=== PATIENT | male | born 1935 | race Caucasian/White ===

== ENCOUNTER 2020-04-03 14:20 | Emergency (ER) | payer OTHER, MEDICARE ==
[~2020-04-03] VITALS: Ht 167.6 cm; Wt 70.3 kg
[~2020-04-03 14:20] MED LIST: BENA20TA9 PO
[2020-04-03 14:22] VITALS: BP_SYST 156
--- NOTE | 2020-04-03 14:25 | NUR ---
Patient to ER bed 4 to gown for evaluation. Side rails up. Report given to Steve.
--- NOTE | 2020-04-03 15:03 | NUR ---
current BS 109.
[2020-04-03 15:32] LABS: BASOPHILS % (AUTO) 0.5 % (0.0-2.0); EOSINOPHILS % (AUTO) 0.4 % (0.0-4.0); HEMATOCRIT 47.4 % (36-54); HEMOGLOBIN 16.2 g/dL (14.0-18.0); LYMPHOCYTES # (AUTO) 0.9 K/uL (1.0-5.5); LYMPHOCYTES % (AUTO) 10.8 % (20.5-51.5); MEAN CORPUSCULAR HEMOGLOBIN 31 pg (27-31); MEAN CORPUSCULAR HGB CONC 34 % (32-36); MEAN CORPUSCULAR VOLUME 92 fL (79.0-98.0); MONOCYTES # (AUTO) 0.8 K/uL (0.0-1.0); MONOCYTES % (AUTO) 9.7 % (1.7-9.3); NEUTROPHILS # (AUTO) 6.5 K/uL (1.8-7.7); NEUTROPHILS % (AUTO) 78.6 % (40.0-70.0); PLATELET COUNT (AUTO) 260 K/uL (130-430); RED BLOOD CELL COUNT(AUTO) 5.16 MIL/uL (4.2-6.2); WHITE BLOOD COUNT (AUTO) 8.2 K/uL (4.8-10.8)
[2020-04-03 15:36] LABS: ANION GAP 5 (5-15); CALCIUM 8.9 mg/dL (8.4-11.0); CHLORIDE 99 mmol/L (98-107); CREATININE 0.94 mg/dL (0.55-1.30); GLUCOSE 103 mg/dL (70-99); POTASSIUM 3.9 mmol/L (3.5-5.1); SODIUM SERUM 136 mmol/L (136-145); UREA NITROGEN, BLOOD 18 mg/dL (8-21)
--- NOTE | 2020-04-03 15:37 | NUR ---
ER at bedside examining patient.
[2020-04-03 15:44] LABS: ALANINE AMINOTRANSFERASE 18 U/L (12-78); ALBUMIN 4.2 g/dL (3.4-4.8); ASPARTATE AMINOTRANSFERASE 14 U/L (10-37); TOTAL BILIRUBIN 2.6 mg/dL (0.0-1.0)
--- NOTE | 2020-04-03 15:45 | NUR ---
JOHNNY EMT FROM HOME FOR ALOC. UPON ARRIVAL DENIES ALOC AND AAOX4, CLEAR MENTATION AND SPEECH. STTAED HE HAS BEEN TAKING ANTIVERT AND C/O DIZZINESS WITH INNER EAR ISSUES THAT CAUSE NAUSEA.
--- NOTE | 2020-04-03 16:30 | NUR ---
VOIDING VIA URINAL. CALM, ALERT, COOPERATIVE, NO CHANGE IN MENTATION, CLEAR SPEECH
[2020-04-03 17:00] LABS: BILIRUBIN,URINE NEGATIVE (NEGATIVE); BLOOD, URINE NEGATIVE (NEGATIVE); CLARITY/URINE CLEAR (CLEAR); COLOR,URINE YELLOW (YELLOW); GLUCOSE,URINE NEGATIVE (NEGATIVE); KETONES,URINE NEGATIVE (NEGATIVE); LEUKOCYTE ESTERASE ,URINE NEGATIVE (NEGATIVE); NITRITE, URINE NEGATIVE (NEGATIVE); PROTEIN URINE NEGATIVE (NEGATIVE); UROBILINOGEN,URINE 0.2 (0.2-1.0)
--- NOTE | 2020-04-03 17:03 | NUR ---
ALERT, CALM, RESP UNLABORED, SKIN WARM AND DRY. NO DISTRESS, CLEAR MENTATION AND SPEECH
--- NOTE | 2020-04-03 17:13 | NUR ---
Spoke to Marga, daughter of pt, requested call for status update. #: [phone]
--- NOTE | 2020-04-03 17:35 | NUR ---
Patient given written and verbal discharge instructions and verbalizes understanding. ER MD discussed with patient the results and treatment provided. Patient in stable condition. ID arm band removed. Rx of given. Patient educated on pain management and to follow up with PMD. Pain Scale 0/10 Opportunity for questions provided and answered. Medication side effect fact sheet provided.
[2020-04-03 17:36] VITALS: BP_SYST 161
== END 2020-04-03 17:35 | disposition home or self-care (01) ==
LOC: SED 14:20
DX: M54.5 Low back pain (principal); I10 Essential (primary) hypertension; E03.9 Hypothyroidism, unspecified; Z86.73 Personal history of transient ischemic attack (TIA), and cerebral infarction without residual deficits; Z88.8 Allergy status to other drugs, medicaments and biological substances
CPT/HCPCS: 36415; 71045; 80053; 81003; 82962; 83615-TC; 84484; 85025; 87040-TC; 93005; 99285